=== PATIENT | male | born 1975 | race African-American/Black ===

== ENCOUNTER 2016-08-07 04:32 | Emergency (ER) | payer BC, OTHER ==
[~2016-08-07] VITALS: Ht 180.3 cm; Wt 79.5 kg
[2016-08-07] MEDS ORDERED: ACET-2247 PO (04:40)
[2016-08-07] MEDS ORDERED: ONDANSETRON HCL 4 MG/2 ML VIAL IM ONE (05:45)
[2016-08-07] MEDS ORDERED: HYDROmorphone 2 MG/ML SYRINGE IM ONE (05:45)
[2016-08-07 07:04] VITALS: BP 127/84
== END 2016-08-07 07:08 | disposition home or self-care (01) ==
LOC: EMS 04:33
DX: M25.561 Pain in right knee (principal); M10.9 Gout, unspecified; J45.909 Unspecified asthma, uncomplicated; F12.90 Cannabis use, unspecified, uncomplicated
CPT/HCPCS: 29505; 73562; 96372; 99284; J1170; J2405

== ENCOUNTER 2017-01-13 13:42 | Emergency (ER) | payer OTHER ==
[~2017-01-13] VITALS: Ht 180.3 cm; Wt 79.5 kg
[~2017-01-13 13:42] MED LIST: ACET-2247 PO
[2017-01-13] MEDS ORDERED: FLUORESCEIN SODIUM 1 MG STRIP OS ONE (15:00)
[2017-01-13] MEDS ORDERED: PROPARACAINE HCL 0.5% 15 ML OPHTHALMIC SOLUTION OS ONE (15:00)
[2017-01-13 15:13] VITALS: BP 134/81
[2017-01-13] MEDS ORDERED: TraMADol HCL 50 MG TABLET PO ONE (15:45)
== END 2017-01-13 16:42 | disposition home or self-care (01) ==
LOC: EMS 13:45
DX: S02.2XXA Fracture of nasal bones, initial encounter for closed fracture (principal); H11.32 Conjunctival hemorrhage, left eye; J45.909 Unspecified asthma, uncomplicated; F12.90 Cannabis use, unspecified, uncomplicated; Y04.2XXA Assault by strike against or bumped into by another person, initial encounter; Y93.89 Activity, other specified; Y92.89 Other specified places as the place of occurrence of the external cause; Y99.8 Other external cause status
CPT/HCPCS: 70450; 70486; 99284